=== PATIENT | female | born 1965 | race African-American/Black ===

== ENCOUNTER 2020-07-28 10:42 | Emergency (ER) | payer MEDICAID ==
[~2020-07-28] VITALS: Ht 195.6 cm; Wt 63.0 kg
[2020-07-28 12:00] LABS: BASOPHILS % 0.4 % (0.0-2.0); HEMOGLOBIN. 14.2 g/dL (12.0-16.0); LYMPHOCYTES % 16.3 % (20.0-50.0); MEAN CORPUSCULAR VOLUME 92.6 fL (81.0-99.0); MEAN PLATELET VOLUME 8.4 fl (7.4-10.4); MONOCYTES % 6.8 % (2.0-8.0); NEUTROPHILS % 73.5 % (40.0-76.0); PLATELET 309 x1000/uL (130-400); RED BLOOD CELL COUNT 4.43 mill/uL (4.2-5.4); RED CELL DISTRIBUTION WIDTH 13.9 % (11.6-14.6)
[2020-07-28 12:06] LABS: CHLORIDE 114 mEq/L (98-107)
[2020-07-28 13:40] VITALS: BP 135/87
== END 2020-07-28 14:00 | disposition home or self-care (01) ==
LOC: ER 11:01
DX: G62.9 Polyneuropathy, unspecified (principal); I10 Essential (primary) hypertension
CPT/HCPCS: 36415; 80053; 85025; 93005; 99284

== ENCOUNTER 2021-02-18 02:51 | Emergency (ER) | payer MEDICAID, OTHER ==
[~2021-02-18] VITALS: Ht 182.9 cm; Wt 136.0 kg
[2021-02-18 02:59] VITALS: BP 147/66
[2021-02-18] MEDS ORDERED: PERMETHRIN 5% CREAM 60GM TOP ONE (03:15)
== END 2021-02-18 04:05 | disposition home or self-care (01) ==
LOC: ER 02:51
DX: Z00.00 Encounter for general adult medical examination without abnormal findings (principal); I10 Essential (primary) hypertension; G62.9 Polyneuropathy, unspecified; Z90.710 Acquired absence of both cervix and uterus; Z59.00 Homelessness unspecified
CPT/HCPCS: 99282

== ENCOUNTER 2021-04-25 18:14 | Emergency (ER) | payer MEDICAID, OTHER ==
[~2021-04-25] VITALS: Ht 157.5 cm; Wt 98.6 kg
[2021-04-25] MEDS ORDERED: CEFAZOLIN 1000MG PREMIX 50 ML IV STA (22:14)
[2021-04-25] MEDS ORDERED: ACETAMINOPHEN 325MG TABLET PO ONE (22:15)
[2021-04-25] MEDS ORDERED: CEPHALEXIN 250MG CAPSULE PO STA (23:19)
[2021-04-25 23:33] LABS: BASOPHILS % 1.3 % (0.0-2.0); EOSINOPHILS % 2.9 % (0.0-5.0); HEMOGLOBIN. 12.6 g/dL (12.0-16.0); LYMPHOCYTES % 24.9 % (20.0-50.0); MEAN CORPUSCULAR HEMOGLOBIN 31.3 pg (28.0-32.0); MEAN CORPUSCULAR VOLUME 92.1 fL (81.0-99.0); MONOCYTES % 10.5 % (2.0-8.0); NEUTROPHILS % 60.4 % (40.0-76.0); PLATELET 324 x1000/uL (130-400); RED BLOOD CELL COUNT 4.02 mill/uL (4.2-5.4); RED CELL DISTRIBUTION WIDTH 13.5 % (11.6-14.6)
[2021-04-25 23:37] LABS: CHLORIDE 109 mEq/L (98-107)
[2021-04-26 00:53] VITALS: BP 152/96
== END 2021-04-26 00:54 | disposition short-term general hospital (02) ==
LOC: ER 18:14
DX: L03.116 Cellulitis of left lower limb (principal); N17.9 Acute kidney failure, unspecified; I10 Essential (primary) hypertension; M19.90 Unspecified osteoarthritis, unspecified site; Z90.710 Acquired absence of both cervix and uterus; Z91.012 Allergy to eggs; Z91.011 Allergy to milk products
CPT/HCPCS: 36415; 73630; 80053; 83605; 85025; 85651; 86140; 93971; 99285

== ENCOUNTER 2021-09-13 01:27 | Emergency (ER) | payer OTHER ==
[~2021-09-13] VITALS: Ht 160 cm; Wt 73.6 kg
[2021-09-13] MEDS ORDERED: ONDANSETRON HCL 4MG/2ML INJ IV STA (05:01)
[2021-09-13 05:55] LABS: BASOPHILS % 0.7 % (0.0-2.0); EOSINOPHILS % 4.1 % (0.0-5.0); HEMATOCRIT. 36.9 % (36.0-48.0); HEMOGLOBIN. 12.9 g/dL (12.0-16.0); MEAN CORPUSCULAR HEMOGLOBIN 32.2 pg (28.0-32.0); MEAN CORPUSCULAR VOLUME 91.9 fL (81.0-99.0); MEAN PLATELET VOLUME 8.2 fl (7.4-10.4); MONOCYTES % 8.4 % (2.0-8.0); NEUTROPHILS % 57.8 % (40.0-76.0); PLATELET 272 x1000/uL (130-400); RED BLOOD CELL COUNT 4.02 mill/uL (4.2-5.4); RED CELL DISTRIBUTION WIDTH 13.6 % (11.6-14.6)
[2021-09-13 06:05] LABS: CLARITY URINE CLEAR (CLEAR); COLOR URINE YELLOW (YELLOW); KETONES URINE NEGATIVE (NEGATIVE); LEUKOCYTE ESTERASE URINE NEGATIVE (NEGATIVE); NITRITE URINE NEGATIVE (NEGATIVE); OCCULT BLOOD URINE NEGATIVE (NEGATIVE); PROTEIN URINE NEGATIVE (NEGATIVE); SPECIFIC GRAVITY URINE 1.011 (1.005-1.030); UROBILINOGEN URINE 0.2 E.U./dL (0.2-1.0)
[2021-09-13 06:06] LABS: CHLORIDE 112 mEq/L (98-107)
[2021-09-13 06:17] LABS: ETHANOL BLOOD < 10 mg/dL
[2021-09-13 06:27] LABS: *AMPHETAMINES SCREEN URINE NEGATIVE (NEGATIVE); *BARBITURATES SCREEN URINE NEGATIVE (NEGATIVE); *BENZODIAZEPINES SCREEN URINE NEGATIVE (NEGATIVE); *COCAINE SCREEN URINE PRESUMTIVE POSITIVE (NEGATIVE); CANNABINOID URINE SCREEN NEGATIVE (NEGATIVE); METHADONE URINE SCREEN NEGATIVE (NEGATIVE); OPIATES URINE SCREEN NEGATIVE (NEGATIVE); PHENCYCLIDINE URINE SCREEN NEGATIVE (NEGATIVE)
[2021-09-13] MEDS ORDERED: KETOROLAC 30MG/ML VIAL IV ONE (06:30)
[2021-09-13 07:20] VITALS: BP 116/95
== END 2021-09-13 09:49 | disposition home or self-care (01) ==
LOC: ER 01:27
DX: R11.10 Vomiting, unspecified (principal); M79.662 Pain in left lower leg; M79.661 Pain in right lower leg; I10 Essential (primary) hypertension; M19.90 Unspecified osteoarthritis, unspecified site; G40.909 Epilepsy, unspecified, not intractable, without status epilepticus; G62.9 Polyneuropathy, unspecified; Z90.710 Acquired absence of both cervix and uterus; Z91.012 Allergy to eggs; Z91.011 Allergy to milk products
CPT/HCPCS: 36415; 71045; 80053; 80305; 80320; 81003; 83690; 83880; 85025; 93005; 96374; 96375; 99285; J1885; J2405; G0480

== ENCOUNTER 2022-03-06 16:05 | Emergency (ER) | payer MEDICARE, MEDICAID ==
[~2022-03-06] VITALS: Ht 162.6 cm; Wt 73.0 kg
[2022-03-06 16:08] VITALS: BP 141/90
== END 2022-03-06 17:33 | disposition home or self-care (01) ==
LOC: ER 16:05
DX: G62.9 Polyneuropathy, unspecified (principal); I10 Essential (primary) hypertension; Z86.59 Personal history of other mental and behavioral disorders; Z98.890 Other specified postprocedural states
CPT/HCPCS: 99283